=== PATIENT | female | born 1990 | race Caucasian/White ===

== ENCOUNTER 2018-07-24 10:42 | Inpatient (IN) | payer MEDICAID ==
[~2018-07-24] VITALS: Ht 162.6 cm; Wt 66.8 kg
[2018-07-24 10:53] VITALS: Ht 162.6 cm; Wt 66.8 kg
[2018-07-24 11:06] VITALS: BP 116/86; PULSE 86; RESP 20
[2018-07-24] MEDS ORDERED: PREN1TAB13 PO (11:28)
[2018-07-24] MEDS ORDERED: OXYTOCIN 30 UNITS/LR 500 ML IV PRN ×2 (12:00→20:30)
[2018-07-24] MEDS ORDERED: CARBOPROST 250 MCG INJ IM PRN ×2 (12:00→20:30)
[2018-07-24] MEDS ORDERED: MISOPROSTOL 200 MCG TAB PR PRN ×2 (12:00→20:30)
[2018-07-24] MEDS ORDERED: METHYLERGONOVINE 0.2 MG INJ IM PRN ×2 (12:00→20:30)
[2018-07-24] MEDS ORDERED: CITRIC ACID/NA CITRATE 30 ML CUP PO ONE (12:00)
[2018-07-24] MEDS ORDERED: OXYTOCIN 30 UNITS/LR 500 ML IV SCH ×2 (12:00→20:19)
[2018-07-24] MEDS ORDERED: CEFAZOLIN 2 GM/50 ML (PMX) 50 ML IVPB SCH (12:00)
[2018-07-24] MEDS: LACTATED RINGER'S 1,000 ML IV SCH ×2 (12:12→13:42)
--- NOTE | 2018-07-24 13:00 | PREAC ---
Date/Time of Note Date/Time of Note DATE: 07/24/18 TIME: 12:59 Anesthesia Eval and Record Evaluation Time Pre-Procedure Interview DATE: 07/24/18 TIME: 12:59 Age 28 Sex female NPO: 8 hrs Preoperative diagnosis breech Planned procedure c section Past Medical History Past Medical History: Includes : Gestational age: (39.2) Surgery & Anesthesia Issues No known issue Meds Anticoagulation: No Beta Pam within 24 hr: No Reason Beta Pam not given: Pt. not on B-Pam Reported Medications Pnv95/Ferrous Fumarate/FA ( Vitamins Tablet) 1 Each Tablet, 1 EACH PO DAILY, TAB 07/24/18 Current Medications Lactated Ringer's 1,000 ml @ 125 mls/hr Q8H IV Last administered on 07/24/18at 12:12; Admin Dose 125 MLS/HR; Start 07/24/18 at 11:45 Cefazolin Sodium/ Dextrose 50 ml @ 100 mls/hr ONCE IVPB ; Start 07/24/18 at 12:00 Oxytocin/Lactated Ringer's 500 ml @ 125 mls/hr POST IV ; Start 07/24/18 at 12:00 Oxytocin/Lactated Ringer's 500 ml @ 0 mls/hr ONCE PRN IV .VAGINAL BLEEDING; Start 07/24/18 at 12:00 Methylergonovine Maleate (Methergine) 0.2 mg ONCE PRN IM .VAGINAL BLEEDING; Start 07/24/18 at 12:00 Carboprost Tromethamine (Hemabate) 250 mcg ONCE PRN IM .VAGINAL BLEEDING; Start 07/24/18 at 12:00 Misoprostol (Cytotec) 1,000 mcg ONCE PRN MA .VAGINAL BLEEDING; Start 07/24/18 at 12:00 Meds reviewed: Yes Allergies Coded Allergies: No Known Allergy (Unverified , 07/24/18) Allergies Reviewed: Yes Labs/Studies Labs Reviewed: Reviewed by anesthesiologist Result Diagram: 07/24/18 1200 Laboratory Tests 07/24/18 12:00 Blood Bank Test 07/24/18 12:00 Antibody Screen NEGATIVE Blood Type O POSITIVE Rh Immune Globulin Candidate NO test: Positive Studies: ECG (n/a), CXR (n/a) Pre-procedure Exam Last vitals Vital Signs Date Temp Pulse Resp B/P (MAP) Pulse Ox O2 O2 Flow FiO2 Time Delivery Rate 07/24/18 98.2 86 20 116/86 Room Air 11:06 (96) Airway: Adequate mouth opening Mallampati: Mallampati I Teeth: Normal Lung: Normal Heart: Normal ASA Physical Status ASA physical status: 2 Emergency: None Planned Anesthetic Neuraxial: Spinal Planned Pain Management Sub-arachniod narcotics Pre-operative Attestations Prior to commencing anesthesia and surgery, the patient was re-evaluated, there was verification of: *The patient's identity *The results of appropriate recent lab work and preoperative vital signs *The above evaluation not changing prior to induction *Anesthetic plan, risk benefits, alternative and complications discussed with patient/family; questions answered; patient/family understands, accepts and wishes to proceed. BATSHEVA JAMES MD Jul 24, 2018 13:00
--- NOTE | 2018-07-24 13:04 | HP ---
Date/Time of Note Date/Time of Note DATE: 07/24/18 TIME: 13:00 OB - History Hx of Present Free Text/Dictation 28 years old 2 para 0-0-1-0 single intrauterine at 39 weeks and 1 day scheduled for primary delivery for breech presentation. She states good movement. She denies nausea, vomiting, shortness of breath, chest pain, headache, visual changes, vaginal bleeding or LOF. Chief Complaint: Scheduled for delivery for breech presentation Estimated Due Date: Jul 30, 2018 : 2 Para: 0 Spontaneous : 1 Therapeutic : 0 Care: Good Care Ultrasounds: Normal mid trimester US Obstetrical Complications: None Medical Complications: None Past Family/Social History * Past Medical, Surgical, Family and Obstetric Histories reviewed from chart. Blood Type: O+ Rubella: immune RPR/VDRL: Negative GBS Status: Negative HBsAG: Negative OB Admission Exam Vital Signs Vital Signs Vital Signs Date Temp Pulse Resp B/P (MAP) Pulse Ox O2 O2 Flow FiO2 Time Delivery Rate 07/24/18 98.2 86 20 116/86 Room Air 11:06 (96) Physical Exam HEENT: WNL Heart: Rhythm Normal Lungs: Clear Abdomen: WNL Extremities: Normal Membranes: Intact Heart Rate: 130's Accelerations: Accelerations Present Decelerations: No Decelerations Varibility: Moderate Last 72 hours Lab Results CBC & BMP 07/24/18 12:00 OB Assessment/Plan Other plan: 28 years old 2 para 0-0-1-0 with single intrauterine at 39 weeks and 1 day with breech presentation admitted for primary delivery. - FHR: No sign of metabolic acidosis- Category I - Continuous EFM, toco - CBC, blood type and screen - Again ultrasound performed which configure breech presentation - Please see the orders - O+/Rubella: Immune - GBS: Negative The risk of delivery including but not limited to bleeding, infection, injury to other organs (bowel, bladder, ureter, vessels, nerves), injury to fetus, blood transfusion, blood transfusion related infection, risk of anesthesia, adhesion, needs for future , removal of uterus or any other indicated surgery was discussed with the patient and her family. She expressed understanding. All of her questions were answered. She signed the informed consent. PHYSICIAN'S VERIFICATION OF INFORMED CONSENT The patient was counseled regarding the procedure, its indications, risks, potential complications and alternatives and any questions were answered. Consent was obtained. PLANNED PROCEDURE/TREATMENT: delivery with possible using vacuum/forceps and any other indicated surgery PHYSICIAN'S VERIFICATION OF INFORMED CONSENT FOR BLOOD TRANSFUSION: There is a reasonable possibility that blood transfusion will be necessary as a result of the patient's procedure. I have discussed the following with the patient/patient's legal sales representative: An explanation of the benefits and risks of the transfusion of blood or blood products and the possible alternatives. All questions have been answered to the patient's satisfaction. INFORMED CONSENT:The patient has been informed of: The nature of the proposed care, treatment, services, medications, interventions or procedures. Potential benefits, risks or side effects, including potential problems related to recuperation. The likelihood of achieving care treatment and service goals. Reasonable alternatives to the proposed care, treatment and service. The relevant risks, benefits and side effects related to alternatives, including the possible results of not receiving care, treatment and services. When indicated, any limitations on the confidentiality of information learned from or about the patient. If appropriate, the risks, benefits and alternatives of the drugs to be used for sedation/analgesia including moderate sedation. If appropriate, patient has been provided information on the risks, benefits and alternatives to the transfusion of blood and/or blood products. If appropriate, patient has been provided information regarding the [place] Act. SYD PARMAR Jul 24, 2018 13:04
[2018-07-24] MEDS ORDERED: ONDANSETRON 4 MG INJ ONE (13:59)
[2018-07-24] MEDS ORDERED: OXYTOCIN 30 UNITS/LR 1,000 ML IV ONE (13:59)
[2018-07-24] MEDS ORDERED: morphine SULFATE/PF (10 MG/10 ML) INJ ONE (13:59)
[2018-07-24] MEDS ORDERED: METOCLOPRAMIDE 10 MG INJ ONE (13:59)
[2018-07-24] MEDS ORDERED: KETOROLAC 30 MG INJ ONE (14:00)
[2018-07-24] MEDS ORDERED: PHENYLephrine (100 MCG/ML) 10ML SYG ONE (14:38)
[2018-07-24] MEDS ORDERED: morphine 2 MG INJ IV PRN ×6 (16:30→19:30)
[2018-07-24] MEDS ORDERED: morphine (1 MG/ML) 10ML SYRINGE IV PRN ×3 (16:30)
[2018-07-24] MEDS ORDERED: ONDANSETRON 4 MG INJ IV PRN ×3 (16:30→19:30)
[2018-07-24] MEDS ORDERED: KETOROLAC 30 MG INJ IV PRN ×3 (16:30→19:30)
[2018-07-24] MEDS ORDERED: NALOXONE (0.4 MG/ML) INJ IV PRN ×2 (16:30→19:30)
[2018-07-24] MEDS ORDERED: DIPHENHYDRAMINE 50 MG INJ IV PRN ×3 (16:30→19:30)
[2018-07-24 18:15] VITALS: BP 113/70; PULSE 64; RESP 18
[2018-07-24 19:45] VITALS: BP 100/66; PULSE 60; RESP 18
--- NOTE | 2018-07-24 20:12 | OPR ---
Operative Report Planned Procedure Procedure date Jul 24, 2018 Procedure(s) Primary low transverse delivery Performed by see signature line [facility] Order Filler: RAKESH KATE MD Anesthesiologist: BATSHEVA JAMES MD Pre-procedure diagnosis 28 years old 2 para 0-0-1-0 with single intrauterine at 39 weeks and 1 day with breech presentation [id number] Anesthesia Type: [id number] spinal Post-Procedure Post-procedure diagnosis 28 years old 2 para 0-0-1-0 with single intrauterine at 39 weeks and 1 day with lilian breech presentation Findings 1. Normal uterus, fallopian tubes and ovaries 2. Viable made in lilian breech presentation. 8 at one minute and 9 in 5 minutes. Weight: 7 pounds 12 ounces. Time of delivery: 14:24 3. Placenta with three vessel cord 4. Amniotic fluid - Clear Estimated Blood Loss: 500 - 600 mls Specimen(s) none Grafts/Implant(s) none Complication(s) none Pt Condition post procedure: stable Disposition: PACU Procedure Description INDICATION AND HISTORY: A 28 years old 2 para 0-0-1-0 with single intrauterine at 39 weeks and 1 day with lilian breech presentation. The risk of delivery including but not limited to bleeding, infection, injury to other organs (ladi l, bladder, ureter, vessels, nerves), injury to fetus, blood transfusion, blood transfusion related infection, risk of anesthesia, adhesion, needs for future , removal of uterus or any other indicated surgery was discussed with the patient and her family. She expressed understanding. All of her questions were answered. She signed the informed consent. DESCRIPTION OF OPERATION: The patient was taken to the operating room, where she was identified and the procedure was verified. The patient received two gram of Ancef 30 minutes prior to surgery. Spinal anesthesia was placed. The patient placed in the dorsal supine position with a left tilt. The heart rate was 130 bpm. The patient was then prepped and draped in the normal sterile fashion. A Pfannenstiel skin incision was made and carried down to the fascia with knife. The fascia was incised in the midline and the fascial incision was carried laterally with Aparicio scissors. The superior portion of the fascial incision was then grasped with Ubaldo clamps and tented up and dissected off the underlying rectus muscle with sharp dissection. The lower portion of the fascial incision was then made in a similar fashion. The rectus muscle was and the peritoneum was entered. The peritoneal incision was then stretched and a bladder blade was inserted. Then, an incision was made in the lower uterine segment in a transverse fashion with a knife and extended bluntly. The was delivered atraumatically in lilian breech presentation with the above findings. The umbilical cord was clamped and cut. The neonatology resuscitation team was present and the baby was handed to them. A cord blood sample was obtained for further evaluation. The placenta and membrane, which appeared normal were Removed. The uterus was exteriorized and cleared of all clot and debris. The uterus was then closed in a two layer fashion with 0- Monocryl. At the time of closure, hemostasis was noted. The gutters were irrigated. The peritoneum was reapproximated with 3-0 Vicryl. The muscle was reapproximated with 3-0 Vicryl. The fascia was approximated with 0-Vicryl in a running fashion. The subcutaneous tissue was re approximated with 3-0 Vicryl. The skin was closed with 4-0 Monocryl. All instruments, sponges and needle counts were correct x3. The patient tolerated the procedure well. She transferred to the recovery room in stable condition. SYD PARMAR Jul 24, 2018 20:12
[2018-07-24] MEDS: DEXTROSE 5%-LR 1,000 ML IV SCH (20:19)
[2018-07-24] MEDS ORDERED: METHYLERGONOVINE 0.2 MG TAB PO PRN (20:30)
[2018-07-24] MEDS: SENNA/DOCUSATE NA (8.6MG/50MG) TAB PO SCH (20:57)
[2018-07-25 00:20] VITALS: BP 115/77; PULSE 68; RESP 18
[2018-07-25] MEDS: DEXTROSE 5%-LR 1,000 ML IV SCH ×3 (01:53→20:19)
--- NOTE | 2018-07-25 03:48 | PAC ---
Date/Time of Note Date/Time of Note DATE: 07/25/18 TIME: 03:48 Post-Anesthesia Notes Post-Anesthesia Note Last documented vital signs Vital Signs Date Temp Pulse Resp B/P (MAP) Pulse Ox O2 O2 Flow FiO2 Time Delivery Rate 07/25/18 98.9 68 18 115/77 98 00:20 (90) 07/24/18 Room Air 19:45 Activity: WNL Respiratory function: WNL Cardiovascular function: WNL Mental status: Baseline Pain reasonably controlled: Yes Hydration appropriate: Yes Nausea/Vomiting absent: No BATSHEVA JAMES MD Jul 25, 2018 03:48
--- NOTE | 2018-07-25 03:49 | OPPN ---
Date/Time of Note Date/Time of Note DATE: 07/25/18 TIME: 03:48 Anesthesia Follow up Anesthesia Follow up Last documented vital signs Vital Signs Date Temp Pulse Resp B/P (MAP) Pulse Ox O2 O2 Flow FiO2 Time Delivery Rate 07/25/18 98.9 68 18 115/77 98 00:20 (90) 07/24/18 Room Air 19:45 Respiratory function: WNL Cardiovascular function: WNL Comments A28 F year s/p spinal duramorph for post op pain POD #1 is doing fine, pain is controlled, No itching, headache, N/V, neural deficit, SOB. BATSHEVA JAMES MD Jul 25, 2018 03:49
[2018-07-25 03:55] VITALS: BP 113/71; PULSE 86; RESP 18
[2018-07-25 08:00] VITALS: BP 102/57; PULSE 94; RESP 18
[2018-07-25] MEDS: SENNA/DOCUSATE NA (8.6MG/50MG) TAB PO SCH ×2 (09:44→21:44)
[2018-07-25] MEDS ORDERED: DIPHTH/TET/ACEL PERTUSS (ADULT) 0.5 ML VIAL IM* ONE (11:00)
[2018-07-25 12:00] VITALS: BP 111/64; PULSE 94; RESP 18
--- NOTE | 2018-07-25 13:10 | PN ---
Date/Time of Note Date/Time of Note DATE: 07/25/18 TIME: 13:08 OB Subjective Subjective Subjective Past flatus. Has not have bowel movement yet. Pain controlled with p.o. pain medication. Tolerated clear liquid diet. Has not been out of the bed yet. [place] is still in. OB Objective Objective Objective General appearance: Alert and oriented x4 does not appear to be in any acute dis tress Abdomen: Soft, fundus palpable below the umbilicus. Appropriate tenderness in the incision. Incision: Clean dry and intact with no evidence of erythema, drainage or bleeding Extremities: No calf tenderness, no click no edema no cords palpable Lungs: Clear to auscultation bilaterally CV: RRR [place]: Draining clear yellow urine Breast: No evidence of mastitis or infection VS - Last 72 Hours, by Label Date Temp Pulse Resp B/P (MAP) Pulse Ox O2 O2 Flow FiO2 Time Delivery Rate 07/25/18 98.1 94 18 111/64 98 Room Air 12:00 (80) 07/25/18 98.9 94 18 102/57 96 Room Air 08:00 (72) 07/25/18 98.5 86 18 113/71 Room Air 03:55 (85) 07/25/18 98.9 68 18 115/77 98 00:20 (90) 07/24/18 98.0 60 18 100/66 96 Room Air 19:45 (77) 07/24/18 97.9 64 18 113/70 100 Room Air 18:15 (84) 07/24/18 98.2 86 20 116/86 Room Air 11:06 (96) Laboratory Tests Test 07/25/18 06:22 07/25/18 07:59 Lab Scanned Report REFERENCE LAB White Blood Count 9.1 Red Blood Count 3.43 #L Hemoglobin 10.3 #L Hematocrit 30.7 #L Mean Corpuscular Volume 89.5 Mean Corpuscular Hemoglobin 30.0 Mean Corpuscular Hemoglobin Concent 33.6 Red Cell Distribution Width 12.7 Platelet Count 228 # Mean Platelet Volume 9.6 Immature Granulocytes % 0.600 H Neutrophils % 77.2 H Lymphocytes % 15.5 Monocytes % 6.2 Eosinophils % 0.3 Basophils % 0.2 Nucleated Red Blood Cells % 0.0 Immature Granulocytes # 0.050 H Neutrophils # 7.0 Lymphocytes # 1.4 Monocytes # 0.6 Eosinophils # 0.0 Basophils # 0.0 Nucleated Red Blood Cells # 0.0 OB Assessment/Plan Other Assessment: Status post section for breech presentation Postoperative day #1 Mild anemia, postop, asymptomatic Doing well DC [place] Ambulation Advance diet Routine postop care XOCHITL OH MD Jul 25, 2018 13:10
[2018-07-25 16:00] VITALS: BP 92/53; PULSE 82; RESP 16
[2018-07-25] MEDS: HYDROCODONE/APAP (5/325) TAB PO PRN (16:19)
[2018-07-25 20:00] VITALS: BP 106/65; PULSE 95; RESP 18
[2018-07-25] MEDS: IBUPROFEN 800 MG TAB PO SCH (21:44)
[2018-07-25] MEDS: HYDROCODONE/APAP (5/325) TAB PO SCH (23:43)
[2018-07-26] MEDS: LANOLIN HPA 1 PKT TOP PRN (01:06)
[2018-07-26 04:07] VITALS: BP 107/55; PULSE 77; RESP 18
[2018-07-26] MEDS: DEXTROSE 5%-LR 1,000 ML IV SCH ×2 (04:19→12:19)
[2018-07-26] MEDS: IBUPROFEN 800 MG TAB PO SCH ×2 (05:54→14:15)
[2018-07-26] MEDS: HYDROCODONE/APAP (5/325) TAB PO SCH ×3 (06:00→22:00)
[2018-07-26 08:00] VITALS: BP 106/78; PULSE 70; RESP 18
[2018-07-26] MEDS: SENNA/DOCUSATE NA (8.6MG/50MG) TAB PO SCH (09:00)
--- NOTE | 2018-07-26 13:28 | QN ---
Documentation Comment passing flatus no B.M yet ambulating vss afebrile abdomen soft wound dry calf neg for tenderness lochia min A s/p p c/s #2 P as ordered PEDRITO GUARDADO MD Jul 26, 2018 13:28
[2018-07-26 15:57] VITALS: BP 100/69; PULSE 84; RESP 18
[2018-07-26 20:00] VITALS: BP 114/63; PULSE 62; RESP 18
[2018-07-27] MEDS: IBUPROFEN 800 MG TAB PO SCH ×2 (00:14→06:00)
[2018-07-27] MEDS: SENNA/DOCUSATE NA (8.6MG/50MG) TAB PO SCH ×2 (00:14→09:00)
[2018-07-27 03:55] VITALS: BP 108/71; PULSE 77; RESP 18
[2018-07-27] MEDS: HYDROCODONE/APAP (5/325) TAB PO PRN (04:26)
[2018-07-27] MEDS: HYDROCODONE/APAP (5/325) TAB PO SCH (06:00)
[2018-07-27 08:00] VITALS: BP 115/78; PULSE 80; RESP 18
[2018-07-27] MEDS ORDERED: MEASLES,MUMPS,RUBELLA VACCINE INJ SC* ONE (09:00)
[2018-07-27] MEDS ORDERED: DIPHTH/TET/ACEL PERTUSS (ADULT) 0.5 ML VIAL IM* ONE ×2 (09:00)
--- NOTE | 2018-07-27 12:07 | PN ---
Date/Time of Note Date/Time of Note DATE: 07/27/18 TIME: 12:05 OB Subjective Subjective Subjective POD#3 Patient is doing well. She denies nausea, vomiting, shortness of breath, chest pain, headache. She has been ambulating without difficulty, tolerating regular diet. Pain is well controlled on current medications OB Objective Objective Objective VS - Last 72 Hours, by Label Date Temp Pulse Resp B/P (MAP) Pulse Ox O2 O2 Flow FiO2 Time Delivery Rate 07/27/18 98.2 80 18 115/78 Room Air 08:00 (90) 07/27/18 98.8 77 18 108/71 Room Air 03:55 (83) 07/26/18 98.3 62 18 114/63 Room Air 20:00 (80) 07/26/18 98.2 84 18 100/69 Room Air 15:57 (79) 07/26/18 98.2 70 18 106/78 Room Air 08:00 (87) 07/26/18 97.7 77 18 107/55 Room Air 04:07 (72) 07/25/18 98.2 95 18 106/65 Room Air 20:00 (79) 07/25/18 98.3 82 16 92/53 (66) Room Air 16:00 07/25/18 98.1 94 18 111/64 98 Room Air 12:00 (80) 07/25/18 98.9 94 18 102/57 96 Room Air 08:00 (72) 07/25/18 98.5 86 18 113/71 Room Air 03:55 (85) 07/25/18 98.9 68 18 115/77 98 00:20 (90) 07/24/18 98.0 60 18 100/66 96 Room Air 19:45 (77) 07/24/18 97.9 64 18 113/70 100 Room Air 18:15 (84) General: AAO X 3, comfortable, NAD, appropriate mood and affect. ABD: +BS. Soft, non-tender. Uterus 2 cm below umbilicus Incision: Clear, dry, intact. No erythema, drainage or induration. Flank: No CVA tenderness (B/L) LE: Mild edema. No clubbing, cyanosis, thigh or calf tenderness (B/L). Homans 'sign is negative OB Assessment/Plan Other plan: 28 years old 2 para 1-0-1-1 s/p primary delivery at 39 weeks and 1 day for breech presentation. POD#3 - AF, VSS - Contraception methods with R/B/A/FR discussed - Continue care - Discharge home - Rx and instruction given - Follow up in one and 6 weeks SYD PARMAR Jul 27, 2018 12:07
--- NOTE | 2018-07-27 12:08 | DS ---
Date/Time of Note Date/Time of Note DATE: 07/27/18 TIME: 12:07 Obstetrical Discharge Record Final Diagnosis Final Diagnosis: Term delivered Other Final Diagnosis 28 years old 2 para 1-0-1-1 s/p primary delivery at 39 weeks and 1 day for breech presentation. POD#3. course was unremarkable. She is ambulating and tolerating regular diet. She is voiding without difficulty. Pain is controlled on current medication - AF, VSS - Contraception methods with R/B/A/FR discussed - Continue care - Discharge home - Rx and instruction given - Follow up in one and 6 weeks Section Section: Primary (Breech presentation) Condition on Discharge Physical Assessment Last Vitals: Vital Signs Date Temp Pulse Resp B/P (MAP) Pulse Ox O2 O2 Flow FiO2 Time Delivery Rate 07/27/18 98.2 80 18 115/78 Room Air 08:00 (90) 07/25/18 98 12:00 Voiding: Yes Bowel Movement: Yes Breast: Soft, non-tender Fundus: Firm Calf Tenderness: No Patient Condition: Stable SYD PARMAR Jul 27, 2018 12:08
[2018-07-27] MEDS: LANOLIN HPA 1 PKT TOP PRN (12:48)
--- NOTE | 2018-07-28 20:11 | DELSUM ---
Delivery Summary A-C Datetime Report Generated by CPN: 07/28/2018 20:11 DELIVERY PERSONNEL Child Welfare Caseworker: [place], May MATERNAL INFORMATION Delivery Anesthesia: Spinal Medications in Delivery: SEE ANESTHESIA RECORD Delivery QBL (ml): 600 Placenta Cultured: No Maternal Complications: Other Other Maternal Complications: BREECH PRESENTATION LABOR SUMMARY EDC: 07/30/2018 00:00 No. Babies in Womb: 0 Attempted: No Labor Anesthesia: None LABOR INFORMATION Reason for Induction: Not Applicable Oxytocin: N/A Group B Beta Strep: Negative Antibiotics # of Doses: 1 Steroids Given: None Reason Steroids Not Administered: Not Applicable MEMBRANES Membranes Rupture Method: Artificial Rupture of Membranes: 07/24/2018 14:23 Length of Rupture (hr): 0.02 Amniotic Fluid Color: Clear Amniotic Fluid Amount: Moderate Amniotic Fluid Odor: None STAGES OF LABOR Stage 3 hr: 0 Stage 3 min: 2 CSECTION DELIVERY Primary Indication: Other Other Primary Indication: BREECH Secondary Indication: N/A CSection Urgency: Elective CSection Incidence: Primary Labor: No Labor Elective: N/A CSection Incision: Lower Uterine Transverse BABY A INFORMATION Infant Delivery Date/Time: 07/24/2018 14:24 Method of Delivery: Born in Route : No : N/A Forceps: N/A Vacuum Extraction: N/A Shoulder Dystocia : N/A SHOULDER DYSTOCIA BABY A Infant Delivery Date/Time: 07/24/2018 14:24 PRESENTATION/POSITION BABY A Presentation: Breech Cephalic Presentation: N/A Breech Presentation: Sanya PLACENTA INFORMATION BABY A Placenta Delivery Time : 07/24/2018 14:26 Placenta Method of Delivery: Manual Removal Placenta Status: Delivered SCORES BABY A Heart Rate 1 min: >100 bpm Resp Effort 1 min: Good Cry Reflex Irritability 1 min: Cough/Sneeze/Pulls Away Muscle Tone 1 min: Active Motion Color 1 min: Blue/Pale Resuscitation Effort 1 min: Tactile Stimulation SCORE 1 MIN: 8 Heart Rate 5 min: >100 bpm Resp Effort 5 min: Good Cry Reflex Irritability 5 min: Cough/Sneeze/Pulls Away Muscle Tone 5 min: Active Motion Color 5 min: Body [place], Extremit Blue Resuscitation Effort 5 min: Tactile Stimulation SCORE 5 MIN: 9 INFORMATION BABY A Gestational Age at Delivery: 39.1 Gestational Status: Full Term- 39- 40.6 Weeks Infant Outcome : Liveborn Infant Condition : Stable Infant Sex: Male IDENTIFICATION/MEDS BABY A ID Band Number: [id number] ID Band Location: Right Leg; Left Arm Sensor Applied: Yes Sensor Number: [id number] Sensor Location : Cord Clamp Vitamin K Given : Not Given Erythromycin Given: Not Given WEIGHT/LENGTH BABY A Birthweight (gm): 3505 Weight (lb): 7 Infant Weight (oz): 12 Length (in): 21.00 Length (cm): 53.34 CORD INFORMATION BABY A No. Cord Vessels: 3 Nuchal Cord : N/A Cord Blood Taken: Yes Infant Suction: Mouth; Nose ASSESSMENT BABY A Infant Complications: None Physical Findings at Delivery: Within Normal Limits Infant Respirations: Appears Normal Vp & General Counsel/ALS Called : No Infant Care By: PROSPER/FABRICE Transferred To: Remains with Mother
== END 2018-07-27 14:15 | disposition home or self-care (01) | DRG 788 ==
LOC: L-D 10:42 → PP1 18:15
PROVIDERS: ADMIT Obstetrics & Gynecology; ATTEND Obstetrics & Gynecology
PROC: 10D00Z1 Extraction of Products of Conception, Low, Open Approach (ICD-10-PCS; principal; 2018-07-24 12:30)
DX: O32.1XX0 Maternal care for breech presentation, not applicable or unspecified (principal); G89.18 Other acute postprocedural pain; O90.81 Anemia of the puerperium; D64.9 Anemia, unspecified; Z3A.39 39 weeks gestation of pregnancy; Z37.0 Single live birth; Z23 Encounter for immunization
CPT/HCPCS: 76815; 85025; 85610; 85730; 86592; 86850; 86900; 86901; 87340; J0690; J1200; J1885; J2274; J2370; J2405; J2590; J2765; J7120; J7121